=== PATIENT | female | born 1990 | race African-American/Black ===

== ENCOUNTER 2017-04-11 10:05 | Emergency (ER) | payer MEDICAID, OTHER ==
[~2017-04-11] VITALS: Ht 172.7 cm; Wt 58.0 kg
[2017-04-11 10:32] VITALS: BP 107/55
== END 2017-04-11 14:12 | disposition home or self-care (01) ==
LOC: ER 10:45
DX: S13.4XXA Sprain of ligaments of cervical spine, initial encounter (principal); M54.2 Cervicalgia; F12.10 Cannabis abuse, uncomplicated; M54.5 Low back pain; V43.52XA Car driver injured in collision with other type car in traffic accident, initial encounter; Y93.89 Activity, other specified; Y92.89 Other specified places as the place of occurrence of the external cause; Y99.8 Other external cause status
CPT/HCPCS: 71101; 72125; 73502; 81025; 99284